=== PATIENT | female | born 1985 | race Caucasian/White ===

== ENCOUNTER 2017-04-03 14:29 | Emergency (ER) | payer OTHER ==
[2017-04-03 15:45] LABS: ADD MAN DIFF? NO
[2017-04-03 15:50] LABS: BASO % 1 % (0-3); EOS % 2 % (0-3); HEMOGLOBIN 14.5 g/dL (12.0-15.5); LYMPH # 2.1 x10^3/uL (1.0-4.8); LYMPH % 39 % (24-48); MEAN CORPUSCULAR HEMOGLOBIN 32 pg (25-35); MEAN CORPUSCULAR HGB CONC 35 g/dL (31-37); MEAN CORPUSCULAR VOLUME 92 fL (79-100); MONO % 6 % (0-9); NEUT % 53 % (31-73); PLATELET COUNT 187 x10^3/uL (140-400); RED BLOOD COUNT 4.56 x10^6/uL (3.50-5.40); RED CELL DISTRIBUTION WIDTH 12.6 % (11.5-14.5); WHITE BLOOD COUNT 5.5 x10^3/uL (4.0-11.0)
[2017-04-03] MEDS ORDERED: CONTRAST GIVEN MC (16:00)
[2017-04-03] MEDS: FAMOTIDINE 20 MG/2 ML VIAL IVP (16:06)
[2017-04-03] MEDS: ONDANSETRON PF 4 MG/2 ML VIAL. IV (16:06)
[2017-04-03] MEDS: IV NORMAL SALINE 1000ML BAG 1,000 ML IV (16:06)
[2017-04-03 16:09] LABS: BILIRUBIN,URINE NEGATIVE (NEG); GLUCOSE,URINE NEGATIVE (NEG); NITRITE,URINE NEGATIVE (NEG); PROTEIN,URINE NEGATIVE (NEG-TRACE)
[2017-04-03 16:10] LABS: URINE HCG POC HCG NEGATIVE (Negative)
[2017-04-03] MEDS: IOHEXOL 300 MG/ML 100ML VIAL. IV (16:16)
[2017-04-03 16:18] LABS: BARBITURATES NEG (NEG); BENZODIAZEPINES NEG (NEG); CANNABINOIDS POS (NEG); COCAINE NEG (NEG); METHADONE NEG (NEG); OPIATES POS (NEG); PHENCYCLIDINE NEG (NEG)
[2017-04-03 16:19] LABS: ANION GAP 14 (6-14); BLOOD UREA NITROGEN 6 mg/dL (7-20); BUN/CREATININE RATIO 9 (6-20); CALCIUM 8.8 mg/dL (8.5-10.1); CARBON DIOXIDE 24 mmol/L (21-32); CHLORIDE 102 mmol/L (98-107); CREATININE 0.7 mg/dL (0.6-1.0); GFR 98.9; GLUCOSE 84 mg/dL (70-99); POTASSIUM 3.6 mmol/L (3.5-5.1); SODIUM 140 mmol/L (136-145)
[2017-04-03 16:24] LABS: ALBUMIN 4.1 g/dL (3.4-5.0); ALBUMIN/GLOBULIN RATIO 1.2 (1.0-1.7); ALK PHOS 80 U/L (46-116); ALT (SGPT) 25 U/L (14-59); AST (SGOT) 17 U/L (15-37); TOTAL BILIRUBIN 0.5 mg/dL (0.2-1.0); TOTAL PROTEIN 7.5 g/dL (6.4-8.2)
[2017-04-03 16:26] LABS: ETHANOL < 10 mg/dL (0-10)
[2017-04-03 16:26] LABS: ETHANOL, URINE NEG (NEG)
[2017-04-03 16:47] LABS: BACTERIA,URINE FEW /HPF (0-FEW); RBC,URINE 0 /HPF (0-2); SQUAMOUS EPITHELIAL CELL,UR MOD /LPF
== END 2017-04-03 18:18 | disposition home or self-care (01) ==
LOC: ER 14:29
DX: N83.201 Unspecified ovarian cyst, right side (principal); F12.90 Cannabis use, unspecified, uncomplicated; Z90.49 Acquired absence of other specified parts of digestive tract; Z88.6 Allergy status to analgesic agent; Z88.8 Allergy status to other drugs, medicaments and biological substances; Z88.5 Allergy status to narcotic agent
CPT/HCPCS: 36415; 74177; 80053; 80307; 81001; 81025; 83690; 85025; 96361; 96374; 96375; 99285-25; G0480; J2405; J7030; Q9967; S0028